=== PATIENT | female | born 1990 | race Caucasian/White ===

== ENCOUNTER 2017-01-07 21:34 | Emergency (ER) | payer OTHER ==
[~2017-01-07] VITALS: Ht 149.8 cm; Wt 85.7 kg
[~2017-01-07 21:34] MED LIST: AMOXICILLIN500 MG PO; AMOXIL500 MG PO; ANAPROX DS550 MG PO; AUGMENTIN 875875 MG PO; BACTROBAN CREAM15 GM PO; BENADRYL25 MG PO; CIPRO250 MG PO; CIPRO500 MG PO; CIPRODEX 0.3%-7.5 ML OT; CLINDAMYCIN HC300 MG PO; CORTISPORIN SUS10 ML OT; FLONASE 0.05% 121 EA NAS; IBU800 M1 PO; IMODIUM2 MG PO; LIDEX0.05% T; MACROBID100 M1 PO; MEDROL DOSEPAK4 MG PO; MOTRIN400 MG PO; MOTRIN600 MG PO; MOTRIN800 MG PO; NAPROSYN500 MG PO; NKHM; PEN-VEE K500 MG PO; PRENATAL1 TA7 PO; PYRIDIUM200 MG PO; SEPTRA DS 800 M1 TAB PO; TOBREX OPHTH S2.5 ML OPH; TRIMOX500 MG PO; TYLENOL W/CODEI1 TA2 PO; ULTRAM50 MG PO; ZITHROMAX250 MG PO; ZOFRAN4 MG PO
== END 2017-01-07 23:41 | disposition home or self-care (01) ==
LOC: ED 21:34
DX: H10.9 Unspecified conjunctivitis (principal); Z88.0 Allergy status to penicillin

== ENCOUNTER 2017-05-02 16:42 | Emergency (ER) | payer OTHER ==
[~2017-05-02] VITALS: Ht 149.8 cm; Wt 85.7 kg
[2017-05-02] MEDS ORDERED: OMNICEF300 MG PO (16:59)
[2017-05-02] MEDS ORDERED: NAPROSYN500 MG PO (17:03)
== END 2017-05-02 19:05 | disposition home or self-care (01) ==
LOC: ED 16:42
DX: H66.91 Otitis media, unspecified, right ear (principal); R03.0 Elevated blood-pressure reading, without diagnosis of hypertension; Z88.0 Allergy status to penicillin

== ENCOUNTER 2017-10-06 22:02 | Emergency (ER) | payer OTHER ==
[~2017-10-06] VITALS: Ht 149.8 cm; Wt 81.6 kg
[~2017-10-06 22:02] MED LIST changes: +OMNICEF300 MG PO
[2017-10-06] MEDS ORDERED: TOBRAMYCIN 5 ML5 M1 OPH (22:23)
== END 2017-10-06 22:45 | disposition home or self-care (01) ==
LOC: ED 22:02
DX: H10.9 Unspecified conjunctivitis (principal); Z88.0 Allergy status to penicillin

== ENCOUNTER 2018-10-20 14:46 | Emergency (ER) | payer OTHER ==
[~2018-10-20] VITALS: Ht 149.8 cm; Wt 81.6 kg
[~2018-10-20 14:46] MED LIST changes: +IBUPROFEN600 MG PO; +TOBRAMYCIN 5 ML5 M1 OPH
[2018-12-07] MEDS ORDERED: TYLENOL325 M1 PO (09:23)
[2018-12-07] MEDS ORDERED: Motrin,Rufen400 MG PO (09:23)
[2018-12-07] MEDS ORDERED: CHANTIX1 M1 PO (09:23)
== END 2018-10-20 18:42 | disposition home or self-care (01) ==
LOC: ED 14:46
DX: K52.9 Noninfective gastroenteritis and colitis, unspecified (principal); R09.81 Nasal congestion; Z88.0 Allergy status to penicillin

== ENCOUNTER → 2021-08-28 | Outpatient (CLI) | payer OTHER ==
[~2021-08-28] MED LIST changes: +CHANTIX1 M1 PO; +Motrin,Rufen400 MG PO; +TYLENOL325 M1 PO
== END | disposition home or self-care (01) ==
LOC: COVID19 16:49
PROVIDERS: ATTEND Internal Medicine
DX: U07.1 COVID-19 (principal)